=== PATIENT | female | born 1985 | race Caucasian/White ===

== ENCOUNTER 2016-10-10 19:45 | Emergency (ER) | payer SELFPAY ==
[2016-10-10 19:58] VITALS: BP 104/70; PULSE 66; TEMP 98.3; BMI 19.9
== END 2016-10-10 21:09 | disposition left against medical advice (07) ==
LOC: JER 19:45
DX: Z53.21 Procedure and treatment not carried out due to patient leaving prior to being seen by health care provider (principal)
CPT/HCPCS: 99281-25

== ENCOUNTER 2017-07-04 05:03 | Day surgery (SDC) | payer SELFPAY ==
[2017-07-04] MEDS ORDERED: ACETAMINOPHEN 1000 MG/100 ML VIAL (NON FORMULARY) IVPB ONE (05:09)
[2017-07-04] MEDS ORDERED: ONDANSETRON 4 MG/2 ML VIAL IVPUSH ONE (05:09)
[2017-07-04] MEDS ORDERED: ACETAMINOPHEN INJECTION 100 ML IVPB ONE (05:10)
[2017-07-04] MEDS ORDERED: ONDANSETRON 4 MG/2 ML VIAL ONE ×2 (05:10→08:45)
--- NOTE | 2017-07-04 05:12 | PDOC ---
History of Present Illness - General Stated Complaint: ABD PAIN Time Seen by Provider: 07/04/17 05:05 - History of Present Illness Initial Comments: 07/04/17 05:10 CHIEF COMPLAINT: abdominal pain. HISTORY OF PRESENT ILLNESS: 31 yo F with hx of ectopic presents to ED with severe R lower abdominal pain x 8 hours. Patient reports one episode of vomiting approximately 30 minutes prior to arrival to ED. Patient states the pain has been "coming and going like everyone 1 minute" and it feels like a cramping/stabbing pain. Patient states her daughter is 8 years old and she had an ectopic 2 years ago but does not remember which side the ectopic was on. She states she did not have surgical treatment of the ectopic and was treated with medicine. Patient states her last LMP was 2016, but last week she had "some black discharge" from her vagina and today she has "a little" vaginal bleeding. Patient denies any other medical problems. Patient's OBGYN "is downtown at [facility]" but she does not remember the name of the doctor. PAST MEDICAL HISTORY: as per HPI FAMILY HISTORY: Denies SOCIAL HISTORY: Denies tobacco, alcohol, illicit drug use. SURGICAL HISTORY: Denies ALLERGIES: No known drug allergies REVIEW OF SYSTEMS General/Constitutional: Denies fever or chills. Denies weakness. HEENT: Denies change in vision. Denies ear pain or discharge. Denies sore throat. Cardiovascular: Denies chest pain or shortness of breath. Respiratory: Denies cough, wheezing, or hemoptysis. Gastrointestinal: One episode of vomiting. Severe lower abdominal/suprapubic pain. Genitourinary: Black discharge from vagina last week, "a little" vaginal bleeding today. Musculoskeletal: Denies joint or muscle swelling or pain. Denies neck or back pain. Skin and breasts: Denies rash or easy bruising. Neurologic: Denies headache, vertigo, loss of consciousness, or loss of sensation. PHYSICAL EXAM General Appearance: Uncomfortable appearing, writing in pain. HEENT: EOMI, PERRLA. No conjunctival pallor. No photophobia, scleral icterus. Respiratory/Chest: Lungs CTAB. Cardiovascular: RRR. S1, S2. Vascular Pulses: Dorsalis-Pedis (R): 2+, Dorsalis-Pedis (L): 2+ Gastrointestinal/Abdominal: Marked R sided suprapubic tenderness on palpation. No organomegaly, pulsatile mass, guarding, hernia, hepatomegaly, splenomegaly. Pelvic: External genitalia normal without lesions. +CMT, b/l adnexal tenderness. Vaginal vault with copious bloody discharge and clots. Cervix is long and closed. Uterus is nontender and normal in size. Musculoskeletal/Extremities: Normal inspection. FROM of all extremities, normal capillary refill. Pelvis Stable. No CVA tenderness. No tenderness to extremities, pedal edema, swelling, erythema or deformity. Integumentary: Appropriate color, dry, warm. No cyanosis, erythema, jaundice or rash Neurologic: radial arm saw operator II-XII intact. Fully oriented, alert. Appropriate mood/affect. Motor strength 5/5. No appreciable EOM palsy, facial droop or sensory deficit. Past History - Past Medical History Allergies/Adverse Reactions: Allergies Allergy/AdvReac Type Severity Reaction Status Date / Time No Known Allergies Allergy Verified 10/10/16 19:58 Home Medications: Ambulatory Orders Acetaminophen/Pyrilamine/Caff [Midol Caplet] 1 each PO Q8H 10/10/16 Acetaminophen [Tylenol -] 500 mg PO Q4H #100 tablet 07/04/17 Ibuprofen [Motrin -] 600 mg PO Q4H PRN #60 tablet 07/04/17 - Suicide/Smoking/Psychosocial Hx Smoking History: Never smoked ED Treatment Course - LABORATORY CBC & Chemistry Diagram: 07/04/17 05:26 07/04/17 05:26 Medical Decision Making - Medical Decision Making 07/04/17 05:29 31 yo F with hx of ectopic presents to ED with severe R lower abdominal pain x 8 hours. -CBC, CMP, beta hcg -IV Tylenol, Zofran Patient pain unrelieved by IV Tylenol. Patient appears to be in excruciating pain and in rigors s/p pelvic exam. 1 mg Dilaudid and sepsis workup ordered per ER attending MD Beck. Ultrasound to be called in to eval for ruptured ectopic. DDx includes PID, ovarian torsion, spontaneous . 07/04/17 06:11 Laboratory Tests 07/04/17 05:26 WBC 12.7 H Hgb 10.0 L Neutrophils % 88.7 H -2g Cefoxitin IV 07/04/17 06:29 Patient reports pain to b/l legs. -0.5mg dilaudid 07/04/17 06:32 Serum positive. Awaiting ultrasound. Discussed case with on-call OB MD Singh. Dr. Singh will come in to see patient in ED. Case discussed in detail with oncoming emergency provider Emelia including history, physical exam and ancillary studies. In brief, this patient is being seen in the ED for a chief complaint of: I have completed the initial assessment interview note and have ordered the following labs: sepsis workup I have reviewed the following results: all labs Pending results: ultrasound Plan for disposition as follows: pending, likely admission Oncoming NPA Emelia has assumed care for the patient and will complete the evaluation and treatment. *DC/Admit/Observation/Transfer Diagnosis at time of Disposition: Abdominal pain during Qualifiers: Trimester: unspecified trimester Qualified Code(s): O26.899 - Other specified related conditions, unspecified trimester - Discharge Dispostion Condition at time of disposition: Good - Prescriptions - Referrals - Patient Instructions - Post Discharge Activity
[2017-07-04 05:33] VITALS: BMI 26.6
[2017-07-04] MEDS ORDERED: SODIUM CHLORIDE 0.9% 1000 ML INFUS.BAG IV PRN (05:35)
[2017-07-04] MEDS ORDERED: HYDROmorphone HCL CARPU-JECT 1 MG/1 ML DISP.SYRIN IVPUSH ONE (05:40)
[2017-07-04] MEDS ORDERED: HYDROmorphone HCL CARPU-JECT 1 MG/1 ML DISP.SYRIN ONE ×3 (05:42→08:25)
[2017-07-04 05:52] LABS: BASO % 0.5 % (0-2.0); EOS % 0.1 % (0-4.5); MCH 25.5 pg (25.7-33.7); MCHC 31.6 g/dl (32.0-36.0); MEAN CELL VOLUME 80.5 fl (80-96); MEAN PLT VOLUME 8.9 fl (7.5-11.1); NEUT % 88.7 % (42.8-82.8); PLATELET COUNT 257 K/MM3 (134-434); RDW 17.7 % (11.6-15.6); WHITE BLOOD COUNT 12.7 K/mm3 (4.0-10.0)
[2017-07-04 06:01] LABS: VENOUS BLOOD GAS HCO3 22.8 meq/L (19-25); VENOUS PH 7.38 (7.32-7.42)
[2017-07-04] MEDS ORDERED: cefOXitin SODIUM 2 GM VIAL (RESTRICTED TO ID) IVPB ONE (06:08)
[2017-07-04 06:19] LABS: ALBUMIN 3.5 g/dl (3.4-5.0); ALK PHOS 47 U/L (45-117); ANION GAP 12 (8-16); BILIRUBIN,TOTAL 0.3 mg/dL (0.2-1.0); CALCIUM 8.8 mg/dL (8.5-10.1); CO2 23 mmol/L (21-32); CREATININE 0.6 mg/dL (0.55-1.02); GLUCOSE,RANDOM 119 mg/dL (74-106); SGOT/AST 19 U/L (15-37); SGPT/ALT 19 U/L (12-78); TOT PROT 6.3 g/dl (6.4-8.2)
[2017-07-04 06:27] LABS: INR 1.12 (0.82-1.09); PROTHROMBIN TIME (PATIENT) 12.6 SEC (9.98-11.88)
[2017-07-04 06:29] LABS: ACTIVATED PTT 23.8 SECONDS (26.9-34.4)
[2017-07-04] MEDS: HYDROmorphone HCL CARPU-JECT 1 MG/1 ML DISP.SYRIN IVPUSH ONE ×3 (06:37→11:10)
[2017-07-04 06:38] LABS: CPK 71 IU/L (26-192); TROPONIN I < 0.02 ng/ml (0.00-0.05)
[2017-07-04] MEDS ORDERED: morphine CARPU-JECT 4 MG/1 ML DISP.SYRIN IVPUSH ONE (07:29)
[2017-07-04] MEDS ORDERED: morphine CARPU-JECT 10 MG/1 ML DISP.SYRIN ONE (07:31)
--- NOTE | 2017-07-04 07:47 | PDOC ---
*Physical Exam - Vital Signs Last Vital Signs Temp Pulse Resp BP Pulse Ox 99.4 F 65 18 110/78 100 07/04/17 05:30 07/04/17 07:35 07/04/17 07:35 07/04/17 07:35 07/04/17 07:35 ED Treatment Course - LABORATORY CBC & Chemistry Diagram: 07/04/17 05:26 07/04/17 05:26 - ADDITIONAL ORDERS Additional order review: Laboratory Results 07/04/17 07/04/17 07/04/17 05:45 05:35 05:35 PT with INR INR PTT (Actin FS) VBG pH POC VBG pCO2 POC VBG pO2 Mixed VBG HCO3 Sodium Potassium Chloride Carbon Dioxide Anion Gap BUN Creatinine Creat Clearance w eGFR Random Glucose Lactic Acid 1.5 Calcium Total Bilirubin AST ALT Alkaline Phosphatase Creatine Kinase Troponin I Total Protein Albumin Lipase Beta HCG, Quant Serum , Qual Positive Blood Type A NEGATIVE Antibody Screen Negative 07/04/17 07/04/17 07/04/17 05:35 05:35 05:35 PT with INR 12.60 H INR 1.12 PTT (Actin FS) 23.8 L VBG pH 7.38 POC VBG pCO2 39.2 POC VBG pO2 40.8 Mixed VBG HCO3 22.8 Sodium Potassium Chloride Carbon Dioxide Anion Gap BUN Creatinine Creat Clearance w eGFR Random Glucose Lactic Acid Calcium Total Bilirubin AST ALT Alkaline Phosphatase Creatine Kinase 71 Troponin I < 0.02 Total Protein Albumin Lipase Beta HCG, Quant Serum , Qual Blood Type Antibody Screen 07/04/17 07/04/17 07/04/17 05:26 05:26 05:26 PT with INR INR PTT (Actin FS) VBG pH POC VBG pCO2 POC VBG pO2 Mixed VBG HCO3 Sodium 141 Potassium 3.4 L Chloride 106 Carbon Dioxide 23 Anion Gap 12 BUN 10 Creatinine 0.6 Creat Clearance w eGFR > 60 Random Glucose 119 H Lactic Acid Calcium 8.8 Total Bilirubin 0.3 AST 19 ALT 19 Alkaline Phosphatase 47 Creatine Kinase Troponin I Total Protein 6.3 L Albumin 3.5 Lipase 120 Beta HCG, Quant 151.9 Serum , Qual Blood Type Antibody Screen 07/04/17 05:26 RBC 3.93 MCV 80.5 MCHC 31.6 L RDW 17.7 H MPV 8.9 Neutrophils % 88.7 H Lymphocytes % 5.9 L Monocytes % 4.8 Eosinophils % 0.1 Basophils % 0.5 - Medications Given in the ED: ED Medications Discontinued Medications Generic Name Dose Route Start Last Admin Trade Name Rickey PRN Reason Stop Dose Admin Acetaminophen 1,000 mg 07/04/17 05:09 07/04/17 05:34 Ofirmev Injection - IVPB 07/04/17 05:10 1,000 mg ONCE ONE Administration Cefoxitin Sodium 2 gm 07/04/17 06:08 07/04/17 06:11 Mefoxin (Restricted To Id) - IVPB 07/04/17 06:09 2 gm ONCE ONE Administration Protocol Hydromorphone HCl 0.5 mg 07/04/17 05:40 07/04/17 05:57 Dilaudid Injection - IVPUSH 07/04/17 05:41 0.5 mg ONCE ONE Administration Hydromorphone HCl 0.5 mg 07/04/17 06:28 07/04/17 06:37 Dilaudid Injection - IVPUSH 07/04/17 06:29 0.5 mg ONCE ONE Administration Morphine Sulfate 4 mg 07/04/17 07:29 07/04/17 07:35 Morphine Injection - IVPUSH 07/04/17 07:30 4 mg ONCE ONE Administration Ondansetron HCl 4 mg 07/04/17 05:09 07/04/17 05:34 Zofran Injection IVPUSH 07/04/17 05:10 4 mg ONCE ONE Administration Medical Decision Making - Medical Decision Making 07/04/17 07:45 Pt received in sign out from NACHO Lawrence. patient presents with abdominal pain and was found to be . Beta hCG 151. Patient returns from ultrasound still complaining of pain despite being given Dilaudid. Patient on exam had mid suprapubic tenderness, minimal bright red blood without clots in vaginal vault. BP 117/54. Patient ordered for morphine 4 mg IVP, normal saline bolus infusing, and awaiting dietary manager for consultation. 07/04/17 08:22 Patient seen by PANEL MAKER and is taking patient to the OR. Patient's last meal at 9 PM. Patient still complaining of lower abdominal pain. Repeat BP 100/54. Another normal saline bolus initiated along with 1 mg of Dilaudid ordered. Selected Entries 07/04/17 08:36 Pulse Rate [ 68 Left Radial] Respiratory 20 Rate Blood Pressure 102/56 [Right Arm] O2 Sat by Pulse 98 Oximetry (%) *DC/Admit/Observation/Transfer Diagnosis at time of Disposition: Abdominal pain during Qualifiers: Trimester: unspecified trimester Qualified Code(s): O26.899 - Other specified related conditions, unspecified trimester - Discharge Dispostion Admit: Yes - Referrals - Patient Instructions - Post Discharge Activity
[2017-07-04] MEDS ORDERED: SODIUM CHLORIDE 1,000 ML IV STA (08:14)
--- NOTE | 2017-07-04 08:20 | CON.OBG ---
Consult Consult Specialty:: OB / FLEXIBLE BABYSITTER Reason for Consultation:: Abdominal pain - History of Present Illness Chief Complaint: Abdominal pain History of Present Illness: 31 yo Para 1 LMP 05/21/17 presents to ER c/o severe abdominal pain associated with vaginal spotting. BHCG is positive. Decision made for laparoscopy du to suspicion of ectopic . - History Source History Provided By: Patient Limitations to Obtaining History: No Limitations - Past Medical History ...LMP: 05/21/17 ...: Yes ...Para: 1 - Past Surgical History Past Surgical History: Yes: None - Alcohol/Substance Use Hx Alcohol Use: No - Smoking History Smoking history: Never smoked Have you smoked in the past 12 months: No - Social History Usual Living Arrangement: With Significant Other History of Recent Travel: No Home Medications - Allergies Allergies/Adverse Reactions: Allergies Allergy/AdvReac Type Severity Reaction Status Date / Time No Known Allergies Allergy Verified 10/10/16 19:58 - Home Medications Home Medications: Ambulatory Orders Acetaminophn/Pyril Mal/Caffein [Midol Caplet] 1 each PO Q8H 10/10/16 Family Disease History - Family Disease History Family History: Unremarkable Review of Systems - Review of Systems Eyes: reports: No Symptoms HENT: reports: No Symptoms Neck: reports: No Symptoms Cardiovascular: reports: No Symptoms Respiratory: reports: No Symptoms Gastrointestinal: reports: No Symptoms Genitourinary: reports: Pain Breasts: reports: No Symptoms Reported Musculoskeletal: reports: No Symptoms Integumentary: reports: No Symptoms Pain Intensity: 9 Physical Exam-FLEXIBLE BABYSITTER Vital Signs: Vital Signs Temperature 99.4 F 07/04/17 05:30 Pulse Rate 65 07/04/17 07:35 Respiratory Rate 18 07/04/17 07:35 Blood Pressure 110/78 07/04/17 07:35 O2 Sat by Pulse Oximetry (%) 100 07/04/17 07:35 Constitutional: Yes: Severe Distress Eyes: Yes: Conjunctiva Clear HENT: Yes: Atraumatic Neck: Yes: Supple, Trachea Midline Cardiovascular: Yes: Regular Rate and Rhythm Respiratory: Yes: Regular, CTA Bilaterally Gastrointestinal: Yes: Normal Bowel Sounds External Genitalia: Yes: Normal Vaginal Exam: Yes: Bleeding Cervix: Yes: Cerv Motion Tenderness Uterus: Yes: Tender Breast(s): Yes: WNL Neurological: Yes: Alert, Oriented ...Motor Strength: WNL Psychiatric: Yes: Alert, Oriented Labs: CBC, BMP 07/04/17 05:26 07/04/17 05:26 Problem List - Problems (1) Abdominal pain during Code(s): O26.899 - OTH RELATED CONDITIONS, UNSPECIFIED TRIMESTER; R10.9 - UNSPECIFIED ABDOMINAL PAIN Qualifiers: Trimester: unspecified trimester Qualified Code(s): O26.899 - Other specified related conditions, unspecified trimester; R10.9 - Unspecified abdominal pain; R10.9 - Unspecified abdominal pain Assessment/Plan Abdominal pain during R/O rupture ectopic Pre op for Laparoscopy Consent signed Anesthesia to see patient
[2017-07-04] MEDS ORDERED: HYDROmorphone HCL CARPU-JECT 2 MG/1 ML DISP.SYRIN IVPUSH ONE (08:21)
[2017-07-04] MEDS ORDERED: DESFLURANE GAS 240 ML BOTTLE IH ONE (08:27)
[2017-07-04] MEDS ORDERED: DEXAMETHASONE SOD PHOSPHATE 4 MG/1 ML VIAL ONE (08:45)
[2017-07-04] MEDS ORDERED: PROPOFOL 20 ML ONE (08:45)
[2017-07-04] MEDS ORDERED: MIDAZOLAM HCL 2 MG/2 ML SINGLE DOSE VIAL ONE (08:45)
[2017-07-04] MEDS ORDERED: ROCURONIUM BROMIDE 50 MG/5 ML VIAL ONE (08:45)
[2017-07-04] MEDS ORDERED: GLYCOPYRROLATE 0.2 MG/1 ML VIAL ONE (09:40)
[2017-07-04] MEDS ORDERED: NEOSTIGMINE METHYLSULFATE 0.5 MG/ML - 10 ML MDV ONE (09:40)
[2017-07-04] MEDS ORDERED: PROMETHAZINE HCL 25 MG/1 ML VIAL IVPUSH PRN (09:53)
[2017-07-04] MEDS ORDERED: HYDROmorphone HCL CARPU-JECT 1 MG/1 ML DISP.SYRIN IVPUSH PRN (09:53)
[2017-07-04] MEDS ORDERED: MEPERIDINE HCL CARPU-JECT 25 MG/1 ML DISP.SYRIN IVPUSH ONE (10:44)
[2017-07-04] MEDS ORDERED: HYDROmorphone HCL CARPU-JECT 2 MG/1 ML DISP.SYRIN ONE (10:51)
[2017-07-04 11:48] VITALS: TEMP 97.9
[2017-07-04] MEDS ORDERED: IBUPROFEN 400 MG TABLET (FP) PO PRN (13:31)
[2017-07-04] MEDS ORDERED: ACETAMINOPHEN 325 MG TABLET (FP) PO PRN (13:31)
[2017-07-04] MEDS ORDERED: IBUPROFEN 400 MG TABLET (FP) PO ONE (13:55)
[2017-07-04] MEDS ORDERED: oxyCODONE HCL 5 MG TABLET PO PRN (14:51)
[2017-07-04] MEDS ORDERED: oxyCODONE HCL 5 MG TABLET PO ONE (14:55)
[2017-07-04 17:01] VITALS: BP 109/75; PULSE 78
--- NOTE | 2017-07-04 21:12 | EKG ---
Test Reason : Blood Pressure : / mmHG Vent. Rate : 055 BPM Atrial Rate : 055 BPM P-R Int : 112 ms QRS Dur : 106 ms QT Int : 450 ms P-R-T Axes : 062 074 062 degrees QTc Int : 430 ms SINUS BRADYCARDIA WITH SINUS ARRHYTHMIA RSR' OR QR PATTERN IN V1 SUGGESTS RIGHT VENTRICULAR CONDUCTION DELAY BORDERLINE ECG NO PREVIOUS ECGS AVAILABLE Confirmed by MD NIYA, STEW ([id number]) on 07/04/2017 9:11:45 PM Referred By: Confirmed By:STEW NÑÚEZ MD
--- NOTE | 2017-07-06 16:39 | PATH ---
Surgical Pathology Report Patient Name: LUISA SANCHEZ [facility]. Rec. #: [id number] /Age/Gender: 1985 (Age: 31) / F Account: [id number] Location: AMBULATORY SURG Taken: 07/04/2017 Received: 07/04/2017 Reported: 07/06/2017 Physicians: Gil Khan M.D. Specimen(s) Received FALLOPIAN TUBE,RIGHT Clinical History Right ectopic Final Diagnosis FALLOPIAN TUBE, RIGHT, EXCISION: FALLOPIAN TUBE WITH PARATUBAL CYST, FOCAL VASCULAR CONGESTION AND HEMORRHAGE. SEPARATE FRAGMENT OF BLOOD/FIBRIN CLOT IDENTIFIED. NO VILLOUS TISSUE IDENTIFIED. Comment: Findings discussed with Dr. Singh. Electronically Signed Maria E Strickland M.D. Gross Description Received in formalin labeled "fallopian tube right," is a 4.5 cm in length fimbriated fallopian tube. The outer surface is brantley-pink and smooth with a 0.4 cm in greatest dimension pedunculated paratubal cyst attached to the fimbria. Sectioning reveals an unremarkable lumen. There is a 0.8 x 0.8 x 0.4 cm portion of red-brown possible blood clot separately received within the same container. The specimen is entirely submitted in 4 cassettes as follows: 1-fimbria and paratubal cyst; 2-3-cross sections of entirely submitted fallopian tube; 4-separately received tissue. 07/04/201707/04/2017
== END 2017-07-04 16:45 | disposition home or self-care (01) ==
LOC: JER 05:03 → JASUSAT 09:02
PROVIDERS: ATTEND Obstetrics & Gynecology
CPT/HCPCS: 36415; 76830-TC; 80053; 82550; 82803; 83605; 83690; 84484; 84702; 84703; 85025; 85610; 85730; 86850; 86900; 86901; 87040; 88305-TC; 93005; 93010; 94760; 99283-25